=== PATIENT | male | born 1985 ===

== ENCOUNTER 2023-10-08 20:56 | Emergency (ER) | payer BC, SELFPAY ==
[2023-10-08 20:58] VITALS: BP 140/94
--- NOTE | 2023-10-08 22:14 | ED.GENMED ---
History of Present Illness
<CAMILLE Kumar - Last Filed: 10/08/23 23:30>
General
Chief Complaint: Skin Surface Trauma
Source: patient
Exam Limitations: none
Time Seen by Provider: 10/08/23 22:05
Nursing documentation reviewed up to this point in time: agreed with
Travel History
Have you had any contact with someone who has COVID-19?: No
Do you have any symptoms of coronavirus? Fever > 100 degrees, chills, cough, shortness of breath, sore throat, loss of taste or smell, muscle aches, or headache?: No
History of Present Illness
History of Present Illness:
patient is a 38 y/o male presenting today with a laceration to his left hand. patient states he was washing a wine glass when it shattered and he cut his hand. Patient has two lacerations on the palmar side of his hand located radially near the base
of his thumb. Patient denies any fever, chills, numbness or tingling. patient shows full ROM of all digits but admits there is pain with movement but denies weakness. Patient was unaware of his last tetanus shot but states it might have been back in
2016. Records show last tdap in 2019.
Review of Systems
<CAMILLE Kumar - Last Filed: 10/08/23 23:30>
Review of Systems
All Other Systems: Not applicable
Constitutional: Reports no symptoms
EENT: Reports no symptoms
Respiratory: Reports no symptoms
Cardiac: Reports no symptoms
ABD/GI: Reports no symptoms
: Reports no symptoms
Musculoskeletal: Reports no symptoms
Skin: Reports other (two lacerations to let hand )
Neurological: Reports no symptoms
Endocrine: Reports no symptoms
Hematologic/Lymphatic: Reports no symptoms
Psychiatric: Reports no symptoms
Phy Exam
<CAMILLE Kumar - Last Filed: 10/08/23 23:30>
General Physical Exam
General Presentation: well appearing and no apparent distress
General Skin: warm and dry
General Habitus: normal
General Mental: alert
General Hydration: appears well hydrated
ENT Exam
ENT Exam: EOMI, pharynx normal, neck supple and normocephalic
Eye Exam
Eye Exam: PERRL, cornea clear and conjunctiva normal
Cardiovascular Exam
Cardiovascular Exam: regular rate/rhythm, no edema, no murmur and normal peripheral pulses
Pulmonary Exam
Pulmonary Exam: lungs clear, no respiratory distress, no rales, no crackles, no rhonchi, no stridor, no wheezing and no cough
Gastrointestinal Exam
Gastrointestinal Exam: normal bowel sounds, non tender, soft, no organomegaly, no pulsatile mass and non distended
Neurological Exam
Neurological Exam: alert, oriented x3, no motor deficits and speech normal
Musculoskeletal Exam
Musculoskeletal Exam: full ROM and no edema
Skin Exam
Skin Exam: laceration (2 lacerations on palmar aspect of left hand, pain to palpation, mild swelling)
Psychiatric Exam
Psychiatric Exam: normal mood/affect
Course
Parminderlt;CAMILLE Kumar - Last Filed: 10/08/23 23:30>
Orders/Labs/Results
Orders:
Orders
10/08/23 22:30
Hand, Left 3 View [CR Hand - Left Min 3 Views] Urgent
Comment:
Reason For Exam: thenar laceration from broken glass
10/08/23 23:26
Cephalexin Monohydrate [Keflex] 500 mg PO NOW STA
Ibuprofen [Motrin] 800 mg PO NOW STA
Vital Signs
Initial and Last Documented VS:
Initial Vital Signs
Temp Pulse Resp BP Pulse Ox
98 F 84 18 140/94 98
10/08/23 20:58 10/08/23 20:58 10/08/23 20:58 10/08/23 20:58 10/08/23 20:58
Last Documented Vital Signs
Temp Pulse Resp BP Pulse Ox
98 F 70 17 135/63 97
10/08/23 20:58 10/08/23 22:55 10/08/23 22:55 10/08/23 22:55 10/08/23 22:55
<Yoly Encinas DO - Last Filed: 10/08/23 23:42>
Orders/Labs/Results
Orders:
Orders
10/08/23 22:30
Hand, Left 3 View [CR Hand - Left Min 3 Views] Urgent
Comment:
Reason For Exam: thenar laceration from broken glass
10/08/23 23:26
Cephalexin Monohydrate [Keflex] 500 mg PO NOW STA
Ibuprofen [Motrin] 800 mg PO NOW STA
Vital Signs
Initial and Last Documented VS:
Initial Vital Signs
Temp Pulse Resp BP Pulse Ox
98 F 84 18 140/94 98
10/08/23 20:58 10/08/23 20:58 10/08/23 20:58 10/08/23 20:58 10/08/23 20:58
Last Documented Vital Signs
Temp Pulse Resp BP Pulse Ox
98 F 70 17 135/63 97
10/08/23 20:58 10/08/23 22:55 10/08/23 22:55 10/08/23 22:55 10/08/23 22:55
Procedures
<CAMILLE Kumar - Last Filed: 10/08/23 23:30>
Laceration Closure
Left Anterior Palmar Hand:
Status of Wound: clean
Size of Wound in cm: 2
Description of Wound Edges: sharp
Preparation: cleaned with saline
Anesthesia: 1% Lidocaine with epi
Revision/Debridement: routine- no revision
Wound exploration: explored to base- no FB and no tendon involvement
Type of Closure: single layer closure and interrupted sutures
Skin Closure Material: 5-0 prolene
Number of sutures: 4
Left Anterior Proximal Palmar Thumb:
Status of Wound: clean
Size of Wound in cm: 1
Description of Wound Edges: sharp
Preparation: cleaned with saline
Revision/Debridement: routine- no revision and irrigate-direct pressure
Wound exploration: explored to base- no FB
Type of Closure: Dermabond-skin glue
<CAMILLE Kumar - Last Filed: 10/08/23 23:30>
MDM/Problems Addressed
Differential Diagnosis Includes:
laceration
wound infection
MDM/Problems Addressed:
laceration to left hand
<CAMILLE Kumar - Last Filed: 10/08/23 23:30>
*Critical Care Note
Total Time (30-74mins, 75-104mins- exclusive of procedures): Not Applicable
<Yoly Encinas DO - Last Filed: 10/08/23 23:42>
*Radiology
Radiology exam reviewed: preliminary read by ED provider (Left hand x-rays unremarkable. No evidence of foreign body. No fracture.)
*Pulse Oximetry
Patient hypoxic: no
ED Attending Note
<CAMILLE Kumar - Last Filed: 10/08/23 23:30>
-
Portions of this chart may have been created with voice recognition software.� Occasional wrong word or��sound alike� substitutions may have occurred due to the inherent limitations of voice recognition software.
<Yoly Encinas DO - Last Filed: 10/08/23 23:42>
ED Attending Note
Patient seen and examined by attending physician: Yes
I performed the substantive portion of visit, reviewed & personally made and approve the management plan that is documented in note by myself or SUZANNE.: Yes
I performed a history and physical exam of patient and discussed management with resident, I reviewed resident's note and agree with documented findings and plan of care.: Yes
ED Attending Note:
This is a right-handed dominant 38-year-old gentleman who states while he was washing out of 1 glass tonight the glass inadvertently broke into his left hand with subsequent lacerations to his left hand.
He has sustained a full-thickness laceration left thenar eminence as well as several very superficial 'paper cuts' to palmar surface of left long and index digits as well as a superficial puncture wound palmar base of the left thumb. Mild active
bleeding initially which stopped with local pressure. Patient states he thoroughly washed the wounds at home with water and then rubbing alcohol. He denies weakness nor numbness.
He is up-to-date with Tdap.
He has history of asthma, well-controlled on maintenance inhaler.
He is currently off from work for the past 2 weeks helping his care for their 2-week-old son. 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
PHYSICAL EXAMINATION:
General: no apparent distress, not acutely ill. 38-year-old gentleman appears his stated age, bright and alert, pleasant, easily communicative and in no acute distress.
Neuro: alert and oriented. no focal neurological deficits. Hand grasps are full and equal bilaterally. Sensation and strength intact.
Psychiatric: well kept. interactive and cooperative
Musculoskeletal: [Left palmar hand has a 2 cm full-thickness laceration to thenar eminence, mild intermittent venous oozing which readily stops with brief local pressure. There is a superficial laceration, superficial dermal
in depth, 1 cm in length to palmar proximal base of the left thumb. Wounds explored, no visible foreign body and no palpable tenderness nor palpable foreign body. There is a 1 cm very superficial laceration anterior mid aspect of the long digit as
well as similar 1 cm very superficial laceration anterior proximal aspect of the left ring digit. Both of these lacerations are superficial, involving the superficial epidermis only. There is full digit and thumb range of motion without difficulty
nor pain. Sensation and strength intact.
Patient has suffered several lacerations to the left hand, 1 of which at the thenar eminence will require suture repair. As laceration occurred from broken glass although no definitive signs of glass foreign body will check x-ray to assess for
potential retained glass foreign body.
He is up-to-date with Tdap.
10/08/2023 2334 PM
Left hand x-ray reviewed, no evidence of foreign body, no fracture.
Thenar eminence laceration suture repaired by PA student under my direct supervision. Steri-Strip applied to sutured wound.
Superficial laceration at base of left thumb repaired by PA student under my direct supervision with wound glue.
Wound dressed with 2 x 2 and Davon gauze.
Discussed routine wound care.
Suture removal in 5 to 7 days; can follow-up with PCP for this.
Will place on short course of Keflex.
Recommend acetaminophen versus ibuprofen for as needed discomfort.
Discharge Plan
Departure
Patient Disposition: Home (Routine Discharge)
Date of Disposition: 10/08/23
Time of Disposition: 23:27
Patient with high blood pressure during this ER visit?: No
Condition: Good
Discharge Problem:
Laceration of left hand
Instructions: Laceration Repair With Glue (DC), Laceration Repair With Stitches (DC), Steri-Strips over Glued Wound
Prescriptions:
New
cephalexin 500 mg capsule
500 mg PO TID Qty: 15 0RF
Referrals:
Trevin Morales MD [Family Provider] - Follow up in 5-7 days
Interventions
Interventions:
*Risk Screen - Suicide Last Done: 10/08/23 20:58
*General Assessment Last Done: 10/08/23 21:11
*Neglect/Abuse Screening Last Done: 10/08/23 20:58
ED- Fall Risk Assessment Last Done: 10/08/23 21:11
*ED COVID-19 Vaccine History Last Done: 10/08/23 21:11
ED-Skin Assessment Last Done: 10/08/23 21:11
[2023-10-08 22:55] VITALS: BP 135/63
[2023-10-08] MEDS: MOTRIN 800 MG PO (23:37)
[2023-10-08] MEDS: KEFLEX 500 MG PO (23:37)
== END 2023-10-08 23:43 | disposition home or self-care (01) ==
LOC: EMR 20:56
PROVIDERS: EMERGENCY PHYSICIAN Emergency Medicine; FAMILY PHYSICIAN Family Medicine
DX: S61.412A Laceration without foreign body of left hand, initial encounter (principal); W25.XXXA Contact with sharp glass, initial encounter; J45.909 Unspecified asthma, uncomplicated
CPT/HCPCS: 12041; 99283; 12001; 73130